=== PATIENT | female | born 1985 | race Caucasian/White ===

== ENCOUNTER 2017-05-25 12:55 | Emergency (ER) | payer SELFPAY, OTHER ==
[2017-05-25 16:10] LABS: ADD MAN DIFF? NO
[2017-05-25 16:47] LABS: WHITE BLOOD COUNT 9.4 10^3/ul (4.8-10.8)
[2017-05-25 16:47] LABS: BASOPHIL # 0.1 10^3/ul (0.0-0.1); BASOPHILS % 0.7 % (0.0-2.0); EOSINOPHILS # 0.3 10^3/ul (0.0-0.5); EOSINOPHILS % 3.4 % (0.0-7.0); HEMATOCRIT 43.2 % (37.0-47.0); HEMOGLOBIN 14.9 g/dl (12.0-16.0); LYMPHOCYTES # 2.7 10^3/ul (0.8-2.9); LYMPHOCYTES % 28.2 % (15.0-51.0); MEAN CORPUSCULAR HGB CONC 34.5 g/dl (32.0-37.0); MEAN CORPUSCULAR VOLUME 84.2 fl (82.0-101.0); MEAN PLATELET VOLUME 12.3 fl (7.4-10.4); MONOCYTE # 0.5 10^3/ul (0.3-0.9); MONOCYTES % 5.3 % (0.0-11.0); NEUTROPHIL # 5.8 10^3/ul (1.6-7.5); NEUTROPHILS % 62.1 % (39.0-77.0); PLATELET COUNT 269 10^3/UL (140-415); RED BLOOD COUNT 5.13 10^6/ul (4.20-5.40); RED CELL DISTRIBUTION WIDTH 13.2 % (11.5-14.5)
[2017-05-25 17:46] LABS: ADD UMIC YES; UR ASCORBIC ACID 40 mg/dL (NEGATIVE); UR BILIRUBIN (Dip) NEGATIVE (NEGATIVE); UR BLOOD (Dip) 2+ mg/dL (NEGATIVE); UR CLARITY SLIGHTLY CLOUDY (CLEAR); UR COLOR YELLOW (YELLOW); UR GLUCOSE (Dip) NEGATIVE (NEGATIVE); UR KETONES (Dip) TRACE mg/dL (NEGATIVE); UR LEUKOCYTE ESTERASE (Dip) 2+ Leu/ul (NEGATIVE); UR MUCUS FEW /HPF (NONE SEEN); UR NITRITE (Dip) NEGATIVE (NEGATIVE); UR RBC 1 /HPF (0-5); UR SPECIFIC GRAVITY (Dip) 1.026 (1.003-1.030); UR SQUAMOUS EPITHELIAL CELL FEW /HPF (FEW); UR TOTAL PROTEIN (Dip) NEGATIVE (NEGATIVE); UR UROBILINOGEN (Dip) NEGATIVE (NEGATIVE); UR WBC 8 /HPF (0-5)
== END 2017-05-25 19:17 | disposition home or self-care (01) ==
LOC: FTE 12:55
DX: O20.0 Threatened abortion (principal); Z3A.12 12 weeks gestation of pregnancy
CPT/HCPCS: 76801; 76817; 81001; 84702; 85025; 86900; 86901; 99284-25

== ENCOUNTER 2018-05-04 05:04 | Inpatient (IN) | payer MEDICAID ==
[2018-05-04] MEDS ORDERED: LACTATED RINGER'S 1,000 ML IV (06:38)
[2018-05-04] MEDS: LACTATED RINGER'S 1,000 ML IV ×2 (06:50→16:48)
[2018-05-04 07:41] LABS: ADD MAN DIFF? NO
[2018-05-04 07:44] LABS: BASOPHIL # 0.1 10^3/ul (0.0-0.1); BASOPHILS % 0.6 % (0.0-2.0); EOSINOPHILS # 0.3 10^3/ul (0.0-0.5); EOSINOPHILS % 3.1 % (0.0-7.0); HEMATOCRIT 37.9 % (37.0-47.0); HEMOGLOBIN 12.6 g/dl (12.0-16.0); LYMPHOCYTES # 1.6 10^3/ul (0.8-2.9); LYMPHOCYTES % 18.1 % (15.0-51.0); MEAN CORPUSCULAR HEMOGLOBIN 28.6 pg (29.0-33.0); MEAN CORPUSCULAR HGB CONC 33.2 g/dl (32.0-37.0); MEAN CORPUSCULAR VOLUME 86.1 fl (82.0-101.0); MEAN PLATELET VOLUME 12.8 fl (7.4-10.4); MONOCYTE # 0.5 10^3/ul (0.3-0.9); MONOCYTES % 5.2 % (0.0-11.0); NEUTROPHIL # 6.4 10^3/ul (1.6-7.5); NEUTROPHILS % 72.5 % (39.0-77.0); PLATELET COUNT 234 10^3/UL (140-415); RED CELL DISTRIBUTION WIDTH 13.3 % (11.5-14.5)
[2018-05-04 07:44] LABS: WHITE BLOOD COUNT 8.8 10^3/ul (4.8-10.8)
[2018-05-04 07:53] LABS: RUPTURE FETAL MEMBRANES POSITIVE (NEGATIVE)
[2018-05-04 07:55] LABS: ADD UMIC YES; UR ASCORBIC ACID NEGATIVE (NEGATIVE); UR BACTERIA FEW /HPF (NONE SEEN); UR BILIRUBIN (Dip) NEGATIVE (NEGATIVE); UR BLOOD (Dip) 1+ mg/dL (NEGATIVE); UR CLARITY CLEAR (CLEAR); UR COLOR STRAW (YELLOW); UR GLUCOSE (Dip) NEGATIVE (NEGATIVE); UR KETONES (Dip) NEGATIVE (NEGATIVE); UR LEUKOCYTE ESTERASE (Dip) TRACE Leu/ul (NEGATIVE); UR NITRITE (Dip) NEGATIVE (NEGATIVE); UR RBC 4 /HPF (0-5); UR SPECIFIC GRAVITY (Dip) 1.004 (1.003-1.030); UR SQUAMOUS EPITHELIAL CELL FEW /HPF (FEW); UR TOTAL PROTEIN (Dip) NEGATIVE (NEGATIVE); UR UROBILINOGEN (Dip) NEGATIVE (NEGATIVE); UR WBC 5 /HPF (0-5)
[2018-05-04] MEDS: MAGNESIUM SULFATE 4 GM/100 ML 100 ML IVPB (07:56)
[2018-05-04] MEDS: AMPICILLIN 2 GM/NS (PMX) 100 ML IVPB ×3 (07:57→21:30)
[2018-05-04 08:02] LABS: ALANINE AMINOTRANSFERASE 22 IU/L (13-69); ALBUMIN 3.5 g/dl (3.3-4.9); ALBUMIN/GLOBULIN RATIO 0.94; ALKALINE PHOSPHATASE 214 IU/L (42-121); ANION GAP 9 (5-13); ASPARTATE AMINO TRANSFERASE 22 IU/L (15-46); BILIRUBIN,INDIRECT 0.1 mg/dl (0-1.1); BILIRUBIN,TOTAL 0.1 mg/dl (0.2-1.3); BLOOD UREA NITROGEN 7 mg/dl (7-20); CALCIUM 9.2 mg/dl (8.4-10.2); CARBON DIOXIDE 22 mmol/L (21-31); CHLORIDE 108 mmol/L (97-110); CREATININE 0.45 mg/dl (0.44-1.00); Estimated GFR > 60 mL/min (>60); GLUCOSE 98 mg/dl (70-220); POTASSIUM 3.9 mmol/L (3.5-5.1); SODIUM 139 mmol/L (135-144); TOTAL PROTEIN 7.2 g/dl (6.1-8.1)
[2018-05-04 08:04] LABS: PARTIAL THROMBOPLASTIN TIME 24.7 Sec (23.0-35.0); PROTIME 12.3 Sec (11.9-14.9)
[2018-05-04] MEDS: MAGNESIUM SULFATE 20 GM/500 ML 500 ML IV ×2 (08:18→17:46)
[2018-05-04] MEDS: DEXAMETHASONE 4 MG/ML 5 ML INJ IM ×2 (08:54→21:30)
[2018-05-04] MEDS: ERYTHROMYCIN BASE (EC) 250 MG TAB PO ×3 (10:36→21:30)
[2018-05-04] MEDS ORDERED: ERYTHROMYCIN LACTOBIONATE 250 MG in SOD CHLORIDE 0.9% 100 ML IV (12:00)
[2018-05-04 14:48] LABS: MAGNESIUM 4.9 mg/dl (1.7-2.5)
[2018-05-04 15:03] LABS: RAPID PLASMA REAGIN NONREACTIVE (NR)
[2018-05-04 19:40] LABS: MAGNESIUM 5.6 mg/dl (1.7-2.5)
[2018-05-05] MEDS: LACTATED RINGER'S 1,000 ML IV ×4 (00:31→21:52)
[2018-05-05 01:06] LABS: MAGNESIUM 6.3 mg/dl (1.7-2.5)
[2018-05-05] MEDS: AMPICILLIN 2 GM/NS (PMX) 100 ML IVPB ×5 (03:15→23:59)
[2018-05-05] MEDS: ERYTHROMYCIN BASE (EC) 250 MG TAB PO ×5 (03:15→23:59)
[2018-05-05] MEDS: MAGNESIUM SULFATE 20 GM/500 ML 500 ML IV ×3 (04:34→21:54)
[2018-05-05 06:40] LABS: MAGNESIUM 6.3 mg/dl (1.7-2.5)
[2018-05-05] MEDS: PRENATAL VITAMIN PO (08:49)
[2018-05-05] MEDS: DEXAMETHASONE 4 MG/ML 5 ML INJ IM ×2 (09:19→21:51)
[2018-05-05 13:27] LABS: MAGNESIUM 6.4 mg/dl (1.7-2.5)
[2018-05-06 01:03] LABS: MAGNESIUM 5.5 mg/dl (1.7-2.5)
[2018-05-06] MEDS: MAGNESIUM SULFATE 20 GM/500 ML 500 ML IV ×2 (01:13→11:20)
[2018-05-06] MEDS: ERYTHROMYCIN BASE (EC) 250 MG TAB PO ×3 (05:54→18:21)
[2018-05-06] MEDS: AMPICILLIN 2 GM/NS (PMX) 100 ML IVPB ×3 (05:54→18:22)
[2018-05-06] MEDS: LACTATED RINGER'S 1,000 ML IV ×2 (05:55→11:10)
[2018-05-06 07:15] LABS: MAGNESIUM 5.9 mg/dl (1.7-2.5)
[2018-05-06] MEDS: PRENATAL VITAMIN PO (09:31)
[2018-05-06 12:42] LABS: MAGNESIUM 5.7 mg/dl (1.7-2.5)
[2018-05-07] MEDS ORDERED: LIDOCAINE 1% (MPF) 30 ML INJ INJ
[2018-05-07] MEDS: AMPICILLIN 2 GM/NS (PMX) 100 ML IV (00:07)
[2018-05-07] MEDS: LACTATED RINGER'S 1,000 ML IV ×2 (00:07→02:40)
[2018-05-07] MEDS ORDERED: NALOXONE (0.4 MG/ML) INJ IV (01:00)
[2018-05-07] MEDS ORDERED: KETOROLAC 30 MG INJ IV (01:00)
[2018-05-07] MEDS ORDERED: ZOLPIDEM 5 MG TAB PO ×2 (01:00→10:00)
[2018-05-07] MEDS ORDERED: DIPHENHYDRAMINE 50 MG INJ IV (01:00)
[2018-05-07] MEDS ORDERED: ONDANSETRON 4 MG INJ IV (01:00)
[2018-05-07] MEDS ORDERED: FENTAnyl 2MCG/ML-ROPIV 0.2% 100 ML BAG EPI (01:00)
[2018-05-07] MEDS ORDERED: HYDROmorphONE 0.5 MG/0.5 ML SYG IV ×2 (01:00)
[2018-05-07 03:02] LABS: WHITE BLOOD COUNT 8.6 10^3/ul (4.8-10.8)
[2018-05-07 03:02] LABS: ADD MAN DIFF? NO; BASOPHILS % 0.1 % (0.0-2.0); EOSINOPHILS % 0.1 % (0.0-7.0); HEMATOCRIT 32.8 % (37.0-47.0); HEMOGLOBIN 10.9 g/dl (12.0-16.0); LYMPHOCYTES # 1.9 10^3/ul (0.8-2.9); LYMPHOCYTES % 21.9 % (15.0-51.0); MEAN CORPUSCULAR HEMOGLOBIN 29.3 pg (29.0-33.0); MEAN CORPUSCULAR HGB CONC 33.2 g/dl (32.0-37.0); MEAN CORPUSCULAR VOLUME 88.2 fl (82.0-101.0); MEAN PLATELET VOLUME 12.2 fl (7.4-10.4); MONOCYTE # 0.7 10^3/ul (0.3-0.9); MONOCYTES % 7.8 % (0.0-11.0); NEUTROPHILS % 69.5 % (39.0-77.0); PLATELET COUNT 232 10^3/UL (140-415); RED BLOOD COUNT 3.72 10^6/ul (4.20-5.40); RED CELL DISTRIBUTION WIDTH 13.4 % (11.5-14.5)
[2018-05-07 03:22] LABS: INR 0.88; PT RATIO 0.9
[2018-05-07 03:23] LABS: PARTIAL THROMBOPLASTIN TIME 20.3 Sec (23.0-35.0)
[2018-05-07 04:26] LABS: HEPATITIS B SURFACE ANTIGEN NEGATIVE (NEGATIVE)
[2018-05-07] MEDS: AMPICILLIN 1 GM/NS (PMX) 50 ML IV (04:32)
[2018-05-07] MEDS: OXYTOCIN 30 UNITS/LR 500 ML IV ×2 (07:32→07:34)
[2018-05-07] MEDS ORDERED: MISOPROSTOL 200 MCG TAB PR ×2 (10:00)
[2018-05-07] MEDS ORDERED: LANOLIN HPA 1 PKT TOP (10:00)
[2018-05-07] MEDS ORDERED: CARBOPROST 250 MCG INJ IM ×2 (10:00)
[2018-05-07] MEDS ORDERED: METHYLERGONOVINE 0.2 MG INJ IM ×2 (10:00)
[2018-05-07] MEDS ORDERED: OXYCODONE/ASPIRIN (4.88/325) TAB PO ×2 (10:00)
[2018-05-07] MEDS ORDERED: OXYTOCIN 30 UNITS/LR 500 ML IV ×2 (10:00)
[2018-05-07] MEDS: WITCH HAZEL/GLYCERIN PAD PR (11:12)
[2018-05-07] MEDS: BENZOCAINE 20% 56 ML SPRAY TOP (11:13)
[2018-05-07] MEDS: IBUPROFEN 600 MG TAB PO ×3 (11:13→23:40)
[2018-05-07 16:42] LABS: RAPID PLASMA REAGIN NONREACTIVE (NR)
[2018-05-07] MEDS: CEPHALEXIN 500 MG CAP PO ×2 (17:15→23:40)
[2018-05-07] MEDS: SENNA/DOCUSATE NA (8.6MG/50MG) TAB PO (21:00)
[2018-05-08] MEDS: CEPHALEXIN 500 MG CAP PO ×3 (05:37→17:40)
[2018-05-08] MEDS: IBUPROFEN 600 MG TAB PO ×3 (05:37→17:40)
[2018-05-08 06:46] LABS: WHITE BLOOD COUNT 8.9 10^3/ul (4.8-10.8)
[2018-05-08 06:46] LABS: ADD MAN DIFF? NO; BASOPHIL # 0.1 10^3/ul (0.0-0.1); BASOPHILS % 0.6 % (0.0-2.0); EOSINOPHILS # 0.2 10^3/ul (0.0-0.5); EOSINOPHILS % 1.9 % (0.0-7.0); HEMATOCRIT 36.4 % (37.0-47.0); LYMPHOCYTES # 3.3 10^3/ul (0.8-2.9); LYMPHOCYTES % 36.6 % (15.0-51.0); MEAN CORPUSCULAR HEMOGLOBIN 28.9 pg (29.0-33.0); MEAN CORPUSCULAR VOLUME 87.7 fl (82.0-101.0); MONOCYTE # 0.6 10^3/ul (0.3-0.9); MONOCYTES % 6.7 % (0.0-11.0); NEUTROPHIL # 4.8 10^3/ul (1.6-7.5); NEUTROPHILS % 53.9 % (39.0-77.0); PLATELET COUNT 213 10^3/UL (140-415); RED BLOOD COUNT 4.15 10^6/ul (4.20-5.40); RED CELL DISTRIBUTION WIDTH 13.4 % (11.5-14.5)
[2018-05-08] MEDS: SENNA/DOCUSATE NA (8.6MG/50MG) TAB PO (09:11)
[2018-05-08] MEDS: DIPHTH/TET/ACEL PERTUSS (ADULT) 0.5 ML VIAL IM* (16:50)
== END 2018-05-08 18:00 | disposition home or self-care (01) | DRG 807 ==
LOC: OBT 05:04 → PP1 05-07 09:33 → L-D 06:12 → OBT 06:35 → L-D 06:35
PROC: 10E0XZZ Delivery of Products of Conception, External Approach (ICD-10-PCS; principal; 2018-05-07)
DX: O60.14X0 Preterm labor third trimester with preterm delivery third trimester, not applicable or unspecified (principal); Z37.0 Single live birth; O42.113 Preterm premature rupture of membranes, onset of labor more than 24 hours following rupture, third trimester; O69.1XX0 Labor and delivery complicated by cord around neck, with compression, not applicable or unspecified; Z3A.33 33 weeks gestation of pregnancy
CPT/HCPCS: 36415; 62319; 76815; 76818; 80053; 81001; 83735; 84112; 85025; 85610; 85730; 86592; 86850; 86900; 86901; 87070; 87086; 87340; 88307; 90686; 99464